=== PATIENT | male | born 1960 | race Two or more races ===

== ENCOUNTER 2021-02-15 12:55 | Outpatient (CLI) | payer OTHER | END 2021-02-15 13:53 | disposition home or self-care (01) | LOC: OFIC 805 12:55 | PROVIDERS: ATTEND Otolaryngology Otology & Neurotology | DX: H90.42 Sensorineural hearing loss, unilateral, left ear, with unrestricted hearing on the contralateral side (principal); H93.8X2 Other specified disorders of left ear; H61.22 Impacted cerumen, left ear ==

== ENCOUNTER 2022-12-14 12:01 | Outpatient (CLI) | payer OTHER | END 2022-12-14 12:08 | disposition home or self-care (01) | LOC: RAD 12:01 | PROVIDERS: ATTEND Internal Medicine Cardiovascular Disease | DX: J44.9 Chronic obstructive pulmonary disease, unspecified (principal) ==

== ENCOUNTER 2025-04-14 00:19 | Emergency (ER) | payer OTHER ==
[~2025-04-14] VITALS: Ht 182.9 cm; Wt 95.3 kg
[2025-04-14] MEDS ORDERED: HYDROCHLOROTH12.5 M2 (00:27)
[2025-04-14] MEDS ORDERED: NIFEDIPINE 10 MG CAPSULE PO ONE (01:28)
[2025-04-14] MEDS ORDERED: NIFEDIPINE 10 MG CAPSULE PO STA (01:41)
[2025-04-14 02:37] LABS: BASO % 0.4 % (0.1-1.2); EOS # 0.22 (0.04-0.54); EOS % 3.9 % (0.7-7.0); HEMATOCRIT 46.7 % (40.1-51.0); HEMOGLOBIN 15.5 g/dL (13.7-17.5); LYMPH # 1.71 (1.18-3.74); LYMPH % 30.4 % (19.3-53.1); MEAN CORPUSCULAR HEMOGLOBIN 27.7 pg (25.6-32.2); MONO # 0.53 (0.24-0.82); MONO % 9.4 % (4.7-12.5); NEUT # 3.14 (1.56-6.13); NEUT % 55.7 % (34.0-71.1); PLATELET COUNT 230 K/uL (163-369); RED BLOOD COUNT 5.59 M/uL (4.63-6.08); RED CELL DISTRIBUTION WIDTH 13.2 % (11.6-14.4)
[2025-04-14 02:59] LABS: INR 1.1; PROTHROMBIN TIME 11.9 SECONDS (9.0-11.5)
[2025-04-14 03:01] LABS: BILIRUBIN TOTAL 0.6 mg/dL (0.3-1.2); CALCIUM 8.9 mg/dL (8.5-10.1); CREATININE SERUM 0.9 mg/dL (0.70-1.30); GFR 84.69; POTASSIUM 3.41 mEq/L (3.5-5.1)
[2025-04-14 03:17] LABS: URINE APPEARANCE Clear; URINE BILIRRUBIN Negative (NEGATIVE); URINE BLOOD Negative; URINE COLOR Yellow; URINE GLUCOSE Negative (NEGATIVE); URINE KETONE Negative (NEGATIVE); URINE LEUKOCYTE Negative; URINE NITRATE Negative; URINE PROTEIN Negative (NEGATIVE)
[2025-04-14 03:22] LABS: URINE BACTERIA 2.4 uL (0.0-1933); URINE EPITHELIAL CELLS 0.6 uL (0.0-38.8)
[2025-04-14] MEDS ORDERED: NIFEDIPINE ER30 MG PO (06:12)
== END 2025-04-14 06:43 ==
LOC: ER 00:19
PROVIDERS: General Practice
DX: R07.89 Other chest pain (principal); I10 Essential (primary) hypertension